=== PATIENT | female | born 1960 | race Caucasian/White ===

== ENCOUNTER 2017-07-09 00:20 | Inpatient (IN) | payer OTHER ==
[2017-07-09] MEDS ORDERED: Lorazepam 2 MG/ML VIAL ONE (00:28)
[2017-07-09] MEDS ORDERED: Haloperidol Lactate 5 MG/ML VIAL ONE (00:37)
[2017-07-09 01:46] LABS: Acetaminophen Less than 6.0 mcg/mL (10.0-30.0); Alcohol Less than 10 mg/dL (Less than 10); Salicylate Less than 8.0 mg/dL (15.0-30.0)
[2017-07-09 01:47] LABS: ALT (SGPT) 87 U/L (8-55); AST (SGOT) 227 U/L (5-34); Albumin 4.3 g/dL (3.5-5.0); Alcohol Less than 10 mg/dL (Less than 10); Alkaline Phosphatase 169 U/L (40-150); Anion Gap 31 mmol/L (10-20); BUN (Urea Nitrogen) 35 mg/dL (9.8-20.1); Bilirubin, Total 1.2 mg/dL (0.2-1.2); Calc. Creatinine Clearance 0 mL/min (70-130); Calcium 9.7 mg/dL (7.8-10.44); Carbon Dioxide 16 mmol/L (22-29); Chloride 99 mmol/L (98-107); Estimated GFR-MDRD 50; Globulin 2.9 g/dL (2.4-3.5); Glucose 86 mg/dL (70-105); Potassium 4.7 mmol/L (3.5-5.1); Protein, Total 7.2 g/dL (6.0-8.3); Sodium 141 mmol/L (136-145)
[2017-07-09 01:49] LABS: Bilirubin Moderate (Negative); Blood, Urine Large (Negative); Clarity CLOUDY (Clear); Glucose, Urine (Dipstick) Negative (Negative); Leukocyte Negative (Negative); Nitrite Negative (Negative); Protein, Urine (Dipstick) 100 mg/dL (Neg-Trace); Specific Gravity, Urine 1.024 (1.002-1.036); pH, Urine 5.5 (5.0-9.0)
[2017-07-09 01:50] LABS: Pregnancy Test - Urine (BHCG) Negative (Negative); Pregu Control Background? CLEAR/WHITE (CLR/WHITE); Pregu Control Bar Appear? YES (CONTROL BAR); Specific Gravity 1.024 (1.002-1.036)
[2017-07-09 01:51] LABS: Bacteria/HPF None Seen HPF (None Seen); Hyaline Casts/LPF 7-10 HYALINE CAST LPF (0-3 Hyaline); RBC/HPF 0-3 HPF (0-3); Squamous Epithelial 0-3 HPF (0-3); WBC/HPF 0-3 HPF (0-3)
[2017-07-09 01:56] LABS: Band 12 % (5-11); Eosinophils 1 % (0-10); Hemoglobin 11.9 g/dL (12.0-16.0); Lymphocytes 8 % (21-51); MDiff Complete? YES; Mean Corpuscular HGB CONC 32.3 g/dL (32.0-36.0); Mean Corpuscular Hemoglobin 28.6 pg (27.0-31.0); Mean Corpuscular Volume 88.3 fl (81.0-99.0); Mean Platelet Volume 5.8 fL (7.4-10.4); Monocytes 10 % (0-10); Neutrophil 69 % (42-75); Nucleated RBC 1 % (0); PLT Morphology Comment Appears Increased; Platelet Count 527 thou/uL (130-400); RBC Distribution Width 13.3 % (11.5-14.5); Red Blood Cell (RBC) Count 4.15 mill/uL (4.20-5.40); White Blood Cell (WBC) Count 23.2 thou/uL (4.8-10.8)
[2017-07-09 03:44] LABS: INR-International Normal Ratio 1.2; PTT 27.4 SEC (22.9-36.1); Prothrombin Time 15.5 SEC (12.0-14.7)
[2017-07-09] MEDS ORDERED: Piperacillin/Tazobactam 3.375 GM in Sodium Chloride 0.9% 100 ML IVPB SCH (05:00)
[2017-07-09 05:16] LABS: Amphetamine Detected (NotDetected); Barbiturates Screen Not Detected (NotDetected); Benzodiazepine Screen Detected (NotDetected); Cocaine Metabolite Screen Detected (NotDetected); Medtox Control Line Valid? VALID (VALID); Medtox Reader # READER 1; Methadone Not Detected (NotDetected); Methamphetamine Detected (NotDetected); Opiate Screen Detected (NotDetected); Oxycodone Screen Not Detected (NotDetected); Phencyclidine (PCP) Not Detected (NotDetected); THC/Cannabinoid Screen Not Detected (NotDetected); Tricyclic Screen Detected (NotDetected)
[2017-07-09] MEDS ORDERED: Ondansetron HCl/PF 4 MG/2 ML Vial IVP PRN (05:17)
[2017-07-09] MEDS ORDERED: Senokot 8.6 MG TAB PO PRN (05:17)
[2017-07-09] MEDS ORDERED: Ondansetron ODT 4 MG TAB PO PRN (05:17)
[2017-07-09] MEDS ORDERED: Calcium Carbonate 500 MG ChewTAB PO PRN (05:17)
[2017-07-09] MEDS ORDERED: Dextrose 50% Abboject 50 ML SYRINGE SLOW IVP PRN (05:21)
[2017-07-09] MEDS ORDERED: Dextrose 5% in Water 1,000 ML IV PRN (05:21)
[2017-07-09] MEDS: Sodium Chloride 0.9% 1,000 ML IV SCH ×3 (05:36→20:12)
--- NOTE | 2017-07-09 05:38 | HP ---
DATE OF ADMISSION: 07/09/2017 PRIMARY CARE PHYSICIAN: Unknown. CHIEF COMPLAINT: Altered mentation and possible drug overdose. HISTORY OF PRESENT ILLNESS: The patient is a 57-year-old female with chronic pain syndrome, was brou ght in by police department for possible overdose. The police department was called to the house by for welfare check because patient was not answering the 's calls. When the police dep artment arrived, the patient was found at home with altered mentation with multiple medication bottle s scattered. The patient was confused and was not following commands. [facility]. She received Ativan by the EMS. She received 5 mg intramuscular Haldol i n the emergency room. At this time, there is no family at the bedside. No information is available from the patient. History obtained from the records from 2015 hospitalization. PAST MEDICAL HISTORY: 1. Bipolar disorder. 2. Chronic pain syndrome. 3. Hypertension. 4. Hyperlipidemia. 5. Hypothyroidism. 6. Chronic hepatitis C. 7. Glaucoma. 8. Chronic obstructive pulmonary disease. PAST SURGICAL HISTORY: . ALLERGIES: No known drug allergies per previous record. HOME MEDICATIONS: Unavailable. SOCIAL HISTORY: Cannot be reliably obtained from the patient due to current cognitive status. FAMILY HISTORY: Cannot be reliably obtained from the patient due to current cognitive status. REVIEW OF SYSTEMS: Cannot be reliably obtained from the patient due to current cognitive status. PHYSICAL EXAMINATION: VITAL SIGNS: In the emergency room showed temperature 99.2, pulse rate of 123, blood pressure of 152 /111 with O2 saturation of 97% on room air. GENERAL: A 57-year-old female with altered mentation. She is agitated and confused. She is not fol lowing commands. She required restraints. HEENT: Head atraumatic, normocephalic. Sclerae are anicteric. Pupils approximately 7-8 mm with goo d response to light. Dry mucous membranes. NECK: Supple, no JVD, no carotid bruit. LUNGS: Showed scattered rales at bases. No wheezing or rhonchi. Lungs were symmetrical. HEART: S1, S2 present, tachycardic, no murmur, rubs or gallops appreciated. ABDOMEN: Soft. Bowel sounds present, no rebound, guarding, no costovertebral angle tenderness. EXTREMITIES: No edema or calf tenderness. There are superficial abrasions noted in the extremities. SKIN: As discussed above. LYMPH NODES: No palpable lymph nodes in the neck. NEUROLOGIC: Could not be reliably done due to current mentation. The patient is spontaneously movin g all four extremities. She is confused and not following commands. PSYCHIATRIC: Could not be reliably done due to current mentation. PERIPHERAL VASCULAR: Radial pulses palpable bilaterally. MUSCULOSKELETAL: No joint swelling or tenderness. LABORATORY FINDINGS: CBC showed WBC of 23.2 with hemoglobin 11.9, platelet 527 with 12% bandemia. I NR 1.2, PT 15.5. Chemistries showed sodium 141, potassium 4.7, chloride 99, bicarbonate of 16, BUN 3 5, creatinine 1.13, AST 227, ALT 87, alkaline phosphatase 169. Urinalysis showed hyaline cast with k etones. Plasma alcohol, salicylate and acetaminophen were negative. Chest x-ray by my review was negative for infiltrate. CT scan of the brain was consistent with small acute left frontotemporal subdural hematoma. Cervical spine CT was negative for any fracture or dis location. EKG by my review showed sinus tachycardia with left axis deviation. IMPRESSION: 1. Toxic metabolic encephalopathy probably secondary to drug overdose. Urine drug screen from 2 mon ths ago was positive for amphetamines, benzodiazepines, cocaine, and opioids. Drug screen is pending at this time. 2. Sepsis with acute organ dysfunction of unclear etiology. The patient has WBC of 23.2 with tachyc ardia and metabolic acidosis. Lactic acidosis will be obtained. 3. Acute kidney injury on chronic kidney disease stage 2. 4. Abnormal liver function tests of unclear etiology. 5. Dehydration. 6. Metabolic acidosis, rule out lactic acidosis. 7. Bipolar disorder. 8. Chronic pain syndrome. 9. Hypertension. 10. Hyperlipidemia. 11. Hypothyroidism. 12. Chronic hepatitis C. 13. Glaucoma. 14. Chronic obstructive pulmonary disease. 15. Small acute left frontotemporal subdural hematoma measuring 5 mm in maximum thickness. PLAN: The patient will be monitored in the Intensive Care Unit. Critical Care will be consulted. W e will continue empiric antibiotics. We will obtain blood cultures. Urine cultures have been sent. We will consult Neurosurgery. Close monitoring. We will obtain neuro checks. We will try to conta ct the family. We will discuss the plan of care with the family when they arrive.
[2017-07-09 06:11] LABS: Lactic Acid 1.4 mmol/L (0.5-2.2)
[2017-07-09 06:13] LABS: Lipase Less than 4 U/L (8-78); Magnesium 2.1 mg/dL (1.6-2.6)
[2017-07-09] MEDS ORDERED: Diazepam 10 MG/2 ML SYRINGE IVP PRN (07:52)
--- NOTE | 2017-07-09 07:52 | ULT ---
RIGHT UPPER QUADRANT ULTRASOUND: Date: 07/09/17 PROVIDED CLINICAL HISTORY: Elevated LFTs. FINDINGS: The pancreas appears normal as visualized, as does the IVC. The liver appears echogenic without evide nce for mass or intrahepatic biliary ductal dilatation. The common duct is not dilated. Gallbladder d emonstrates no stones, wall thickening, or pericholecystic fluid. Right kidney demonstrates no hydron ephrosis or mass. IMPRESSION: Fatty infiltration of the liver. POS: [facility]
[2017-07-09] MEDS: Famotidine/PF 20 mg/2ml Vial SLOW IVP SCH (08:17)
[2017-07-09] MEDS: Lorazepam 2 MG/ML VIAL SLOW IVP SCH ×2 (08:17→09:38)
--- NOTE | 2017-07-09 08:56 | RAD ---
PORTABLE CHEST: Date: 07/09/17 PROVIDED CLINICAL HISTORY: Overdose. FINDINGS: Comparison made with study dated 10/20/11. Cardiac and mediastinal silhouette is within normal limits for portable technique. No focal consolida tion evident. The supine nature of the examination limits sensitivity for detection of pleural fluid and pneumothorax. IMPRESSION: As above. POS: [facility]
--- NOTE | 2017-07-09 09:51 | PRG ---
DATE OF SERVICE: 07/09/2017 I personally interviewed and examined the patient and agree with documentation of marie Morris PA-C 07/09/2017. Briefly, Majo Dang is a 57-year-old woman with bipolar disorder and chronic pain, who was found do wn by her family with some pill bottles near her. She was confused and brought to the emergency depa rtment, where CT examination of the brain showed a very small left-sided subdural hematoma, measuring 2 mm in thickness at most, not causing any mass effect. The rest of the brain scan was normal. CT examination of the cervical spine showed a chronic spondylolisthesis at C4-5 from facet disease. Neurosurgery was consulted yesterday. Ms. Dang is in the ICU room this morning as I see her. Her T-max is 99.4 degrees. As I entered e room, she is speaking loudly. She is not making sense. When I say her first name, Majo, she answ ers yes. Occasionally, I can convince her to follow commands, but the majority of the time she is sp eaking incoherently. She is moving all 4 extremities. There is no cranial neuropathy that I can aparna reciate. I cannot get a full sensory examination, but she does react to tactile stimuli. I reviewed the CT scan from yesterday and I am awaiting 1 today. This tiny subdural hematoma is nons urgical. I doubt she will require any neurosurgical intervention. However, Ms. Dang has a psychiatric disturbance. A new delirium has been added to her underlying p sychiatric diagnoses and her management will be complicated. Inpatient treatment for this would be i deal if we have the appropriate psychiatric hospital bed for her. I would like to get a followup sca n of her brain in about a month to ensure the blood products have resolved, and hopefully speak to he r coherently about her cervical spine disease. Our office will make attempts to have that appointmen t set up. Our team will be available during hospitalization should neurosurgical opinion be valuable on upcoming issues. I would not give her anticoagulation given the subdural hematoma, but the amoun t she is moving puts her at very low risk for DVT.
--- NOTE | 2017-07-09 09:53 | CT ---
PRELIMINARY REPORT/[facility]/EMERGENCY AFTER HOURS PROCEDURE: Addendum created by Oral Goldberg MD on 07/09/2017 1:32 AM Central Time ([place] & [place]) Findings discussed with EM BENITEZ MD at time of interpretation. Initial Report created on 07/09/2017 1:27 AM Central Time ([place] & [place]) EXAM: CT Head Without Intravenous Contrast EXAM DATE/TIME: Exam ordered 07/09/2017 1:18 AM CLINICAL HISTORY: 57 years old, female; Signs and symptoms; Altered mental status/memory loss; Patient HX: Er 5; F57 with presentation of od. Pd was called to the house by for welfare check because pt was not answering the 's calls. Pd arrive to pt's house with multiple pill bottles scattered a nd pt was confused, resistant and altered and was given 6 of ativan. ; Additional info: *-pt combative f or exam TECHNIQUE: Axial computed tomography images of the head/brain without intravenous contrast. COMPARISON: No relevant prior studies available. FINDINGS: Brain: There is an acute left frontotemporal subdural hematoma measuring 5 mm in maximum thickness and spanning 6 cm in long axis. Volume loss and chronic small vessel ischemic change. No evidence of cerebral edema. Midline shift: No midline shift. Ventricles: Unremarkable. No ventriculomegaly. Bones/joints: Unremarkable. No acute fracture. Soft tissues: Unremarkable. Sinuses: Unremarkable as visualized. No acute sinusitis. Mastoid air cells: Unremarkable as visualized. No mastoid effusion. IMPRESSION: Small acute left frontotemporal subdural hematoma. Thank you for allowing us to participate in the care of your patient. Dictated and Authenticated by: Oral Goldberg MD 07/09/2017 1:27 AM Central Time ([place] & [place]) FINAL REPORT EMERGENCY AFTER HOURS CT BRAIN: Date: 07/09/17 IMPRESSION: I agree with the preliminary interpretation given by Florinda. POS: [facility]
--- NOTE | 2017-07-09 09:58 | CT ---
PRELIMINARY REPORT/[facility]/EMERGENCY AFTER HOURS PROCEDURE: EXAM: CT Cervical Spine Without Intravenous Contrast EXAM DATE/TIME: Exam ordered 07/09/2017 1:53 AM CLINICAL HISTORY: 57 years old, female; Injury or trauma; Fall; Initial encounter; Abrasion; Patient HX: Possible fall; Er 5; F57 with presentation of od. Pd was called to the house by for welfare check because p t was not answering the 's calls. Pd arrive to pt's house with multiple pill bottles scattered and pt was confused, resistant and altered and was given 6 of ativan. ; Additional info: *-pt combat zeyad for exam TECHNIQUE: Axial computed tomography images of the cervical spine without intravenous contrast. Coronal and sagi ttal reformatted images were created and reviewed. COMPARISON: No relevant prior studies available. FINDINGS: Vertebrae: No fracture. Degenerative changes. Mild anterolisthesis of C4 on C5. Discs/spinal canal/neural foramina: No acute findings. No spinal canal stenosis. Soft tissues: Unremarkable. Lung apices: Unremarkable as visualized. IMPRESSION: No fracture. Thank you for allowing us to participate in the care of your patient. Dictated and Authenticated by: Oral Goldberg MD 07/09/2017 3:17 AM Central Time ([place] & [place]) FINAL REPORT EMERGENCY AFTER HOURS CT CERVICAL SPINE: Date: 07/09/17 IMPRESSION: I agree with the preliminary interpretation given by Florinda. No evidence for fracture. Approximately 4. 0 mm of anterolisthesis of C4 on C5, which is presumably degenerative in nature given the advanced fa cet arthritis present at this level. Correlation with flexion and extension radiographs may be useful as clinically indicated. POS: [facility]
[2017-07-09] MEDS ORDERED: Ziprasidone 20 MG VIAL IM SCH (10:45)
[2017-07-09] MEDS ORDERED: Sterile Water 10 ML VIAL FS SCH (11:00)
--- NOTE | 2017-07-09 12:51 | CON ---
DATE OF CONSULTATION: 07/09/2017 HISTORY OF PRESENT ILLNESS: Ms. Dang is a 57-year-old female who I saw in her room this morning. She presented to [facility] this morning after being brought in by police for po ssible overdose. The police department was called by her for a welfare check and the patient was found at home with altered mental status, multiple medication bottles scattered around her. The patient was not following commands, but she was moving all extremities. [facility] and received 6 mg of Ativan by EMS en route. When she got to [facility], she is still combative and I gave Haldol in the ER, 5 mg intramuscular. There is no fa mariya at bedside. There is no information available from the patient this morning on exam. Ms. Cr jean-baptiste still does not follow commands; however, she is able to move all extremities. On CT scan, she has a small layering left frontal temporoparietal subdural hematoma that is acute. It is not causing any midline shift or neurologic deficit at this time. Neurosurgery was called because of these findings . PAST MEDICAL HISTORY: Includes, 1. Bipolar disorder. 2. Chronic pain syndrome. 3. Hypertension. 4. Hyperlipidemia. 5. Hypothyroidism. 6. Chronic hepatitis C. 7. Glaucoma. 8. Chronic obstructive pulmonary disease. PAST SURGICAL HISTORY: . ALLERGIES: No known drug allergies. HOME MEDICATIONS: Not available at this time. SOCIAL HISTORY: The patient is unable to give social history at this time; however, because of her m entation. FAMILY HISTORY: Cannot be reliably obtained at this time due to patient's cognitive status. LABORATORY DATA: Toxicity screen shows urine opiate screen is positive. Acetaminophen is positive. Tricycles are positive, amphetamines are positive, methamphetamines are positive, benzodiazepines ar e positive and cocaine is positive as well as beta hydroxybutyrate. On her urine screen, she has 100 high urine protein, urine ketones are high and she has a large amoun t of blood in the urine. On chemistry exam, her sodium is 141, creatinine is 1.13. AST is 227 and ALT is 87. Coagulation exa m; PT is 15.5, INR and APTT are normal. On hematology exam, white blood cell count is 23.2, red blood cell count is 1.15 and hemoglobin is 11 .9. PHYSICAL EXAMINATION: CURRENT VITAL SIGNS: Include temperature is 98.5, pulse is 114, respirations 22, O2 sat is 97% on ro om air. GENERAL: A 57-year-old female with altered mentation, agitated and confused and not following comman ds. She required restraints in the ICU. HEENT: Normocephalic, atraumatic. Hearing intact. Moist mucous membranes. NECK: Trachea is midline. EYES: Pupils are equal and reactive to light. Extraocular muscles are intact. Sclerae is white, no nicteric. CARDIOVASCULAR: The patient has regular rate and rhythm, normal S1, S2 heart sounds. Distal cyanosi s or clubbing is not noted. NEUROLOGIC: Patient is moving upper and lower extremities. Does not appeared to be any focal motor deficits or focal sensory deficits. She is confused and not following commands at this time. MUSCULOSKELETAL: There is no joint tenderness or swelling. She has good strength in her upper and l ower extremities bilaterally. IMPRESSION: 1. Ms. Dang is a 57-year-old female who presents with a drug overdose with multiple positive drug screen showing positive for amphetamines, benzodiazepines, cocaine, opiates. 2. Sepsis with acute organ dysfunction . 3. Small acute left frontotemporal subdural hematoma measuring 5 mm in maximum thickness causing a m idline shift. PLAN: From a neurosurgical standpoint, we will get a repeat CT this morning to see if there is any b lossoming in the left frontotemporal hemorrhage. We will do neuro checks and have her stay in the IC U overnight. She will likely need monitored closely because of the metabolic encephalopathy and drug overdose. Medicine has admitted to ICU, and Neurosurgery will continue to follow. If there are any further questions, please feel free to contact Neurosurgery.
--- NOTE | 2017-07-09 13:36 | PDOC.PN ---
- Subjective Encounter Start Date: 07/09/17 Encounter Start Time: 09:10 Subjective: not oriented, is thrashing around on bed -: responds to her name but is not oriented -: is seen moving all extremities - Objective Resuscitation Status: Resuscitation Status FULL:Full Resuscitation MAR Reviewed: Yes Vital Signs & Weight: Vital Signs (12 hours) Temp Pulse Resp Pulse Ox 07/09/17 12:00 97.9 F 07/09/17 10:45 99 07/09/17 10:42 102 H 18 99 07/09/17 08:00 99.4 F 07/09/17 07:27 99.4 F 133 H 22 H 97 07/09/17 06:00 98.5 F 07/09/17 05:56 98.5 F 114 H 22 H 96 Weight Weight 151 lb 3.794 oz Most Recent Monitor Data Heart Rate from ECG 103 NIBP 119/67 NIBP BP-Mean 83 Respiration from ECG 26 SpO2 99 I&O: 07/08/17 07/09/17 07/10/17 05:59 06:59 06:59 Intake Total Balance Result Diagrams: 07/09/17 00:15 07/09/17 00:15 Additional Labs: Accuchecks 07/09/17 05:29 POC Glucose 141 H Phys Exam - Physical Examination HEENT: PERRLA, sclera anicteric Neck: no JVD, supple Respiratory: no wheezing, no rales Cardiovascular: RRR, no significant murmur Gastrointestinal: soft, non-tender, positive bowel sounds Musculoskeletal: no edema, pulses present Neurological: non-focal, moves all 4 limbs Dx/Plan (1) Acute encephalopathy Code(s): G93.40 - ENCEPHALOPATHY, UNSPECIFIED Status: Acute (2) Polysubstance abuse Code(s): F19.10 - OTHER PSYCHOACTIVE SUBSTANCE ABUSE, UNCOMPLICATED Status: Acute (3) Drug overdose Code(s): T50.901A - POISONING BY UNSP DRUG/MEDS/BIOL SUBST, ACCIDENTAL, INIT Status: Acute Qualifiers: Encounter type: subsequent encounter (4) TREV (acute kidney injury) Code(s): N17.9 - ACUTE KIDNEY FAILURE, UNSPECIFIED Status: Acute (5) SDH (subdural hematoma) Code(s): I62.00 - NONTRAUMATIC SUBDURAL HEMORRHAGE, UNSPECIFIED Status: Acute Comment: on left side (6) Metabolic acidosis Code(s): E87.2 - ACIDOSIS Status: Acute (7) Mood disorder Code(s): F39 - UNSPECIFIED MOOD [AFFECTIVE] DISORDER Status: Chronic (8) COPD (chronic obstructive pulmonary disease) Status: Chronic Qualifiers: COPD type: chronic bronchitis Chronic bronchitis type: unspecified Qualified Code(s): J42 - Unspecified chronic bronchitis (9) Hypothyroidism Code(s): E03.9 - HYPOTHYROIDISM, UNSPECIFIED Status: Chronic Qualifiers: Hypothyroidism type: unspecified Qualified Code(s): E03.9 - Hypothyroidism , unspecified (10) Chronic pain syndrome Code(s): G89.4 - CHRONIC PAIN SYNDROME Status: Chronic - Plan aggressive iv hydration -: is empirically place on vanc and meropenem -: will need in psych facility upon discharge -: multiple substance abuse/overdose -: will f/u * . Review of Systems - Medications/Allergies Allergies/Adverse Reactions: Allergies Allergy/AdvReac Type Severity Reaction Status Date / Time No Known Allergies Allergy Verified 11/23/15 23:31 Medications: Current Medications Acetaminophen (Tylenol) 650 mg PO Q4H PRN PRN Reason: Headache/Fever or Pain Albuterol/Ipratropium (Duoneb) 3 ml NEB [id number] [facility] Last Admin: 07/09/17 10:42 Dose: 3 ml Albuterol/Ipratropium (Duoneb) 3 ml NEB Q4H PRN PRN Reason: SOB &/or Wheezing Calcium Carbonate (Tums) 1,000 mg PO Q4H PRN PRN Reason: Heartburn or Indigestion Dextrose/Water (Dextrose 50%) 25 gm SLOW IVP PRN PRN PRN Reason: Hypoglycemia Famotidine (Pepcid) 20 mg SLOW IVP Q12HR [facility] Last Admin: 07/09/17 08:17 Dose: 20 mg Glucagon (Glucagon) 1 mg IM PRN PRN PRN Reason: Hypoglycemia Meropenem 1 gm/ Syringe 20 mls @ 240 mls/hr SLOW IVP Q8HR [facility] Sodium Chloride (Normal Saline 0.9%) 1,000 mls @ 150 mls/hr IV .Q6H40M [facility] Last Admin: 07/09/17 12:30 Dose: 1,000 mls Dextrose/Water (D5w) 1,000 mls @ 0 mls/hr IV .Q0M PRN; As Directed PRN Reason: Hypoglycemia Vancomycin HCl 750 mg/ Sodium (Chloride) 250 mls @ 250 mls/hr IVPB 0400,1600 [facility] Lorazepam (Ativan) 2 mg SLOW IVP [facility] Last Admin: 07/09/17 09:38 Dose: 2 mg Miscellaneous Medication (Pharmacy To Dose) 0 each IVPB PRN PRN PRN Reason: VANC/RENAL Pharmacy to Dose Ondansetron HCl (Zofran Odt) 4 mg PO Q6H PRN PRN Reason: Nausea/Vomiting Ondansetron HCl (Zofran) 4 mg IVP Q6H PRN PRN Reason: Nausea/Vomiting Senna (Senokot) 2 tab PO HSPRN PRN PRN Reason: Constipation Sodium Chloride (Flush - Normal Saline) 10 ml IVF PRN PRN PRN Reason: Saline Flush Last Admin: 07/09/17 08:17 Dose: 10 ml Sterile Water (Water For Injection) 2 ml FS NOW [facility] Stop: 07/09/17 14:00 Last Admin: 07/09/17 11:07 Dose: 2 ml
[2017-07-09] MEDS: Meropenem 1 GM in Syringe 20 ML SLOW IVP SCH ×2 (14:30→21:19)
[2017-07-09] MEDS ORDERED: Vancomycin HCl 1 GM in Premix Bag 1 BAG IVPB SCH (16:00)
[2017-07-09] MEDS: Vancomycin HCl 750 MG in Sodium Chloride 0.9% 250 ML 250 ML IVPB SCH (16:20)
--- NOTE | 2017-07-09 17:20 | CON ---
DATE OF CONSULTATION: 07/09/2017 HISTORY OF PRESENT ILLNESS: Ms. Dang is a 57-year-old female. Apparently, she was brought in by the police for possible overdose. Apparently, her ex-? coul d not get a hold of her. The police were called and she was found with an altered mental status in t he home and brought to the Emergency Department. She received apparently a large dose of Ativan by [facility] according to the neurologist's note. She has also been seen by Neurosurgery for a very small left subdural hematoma. She had no spinal cord injury. She is still fairly incoherent. She is talking with her eyes closed. PAST MEDICAL HISTORY: Remarkable for bipolar disorder, chronic pain, hypertension, lipid disorder, h ypothyroidism, chronic hepatitis C, glaucoma and COPD. She has been hospitalized in [place], but has not been hospitalized here recently. She did have an operative procedure by Dr. Ward in 10/2015 when he took out her appendix via lapar oscope. She had several ER visits along the way. Old records have been reviewed. It is noted in an old records that she has been followed at / by Dr. Cook and then was followed by Dr. Ness and apparently her pain was managed with morphine. PAST SURGICAL HISTORY: Besides her appendectomy, it is remarkable for . SOCIAL HISTORY: She is a nonsmoker, nondrug user. In 2014, when Dr. Daly saw her, she was . FAMILY HISTORY: Positive for congestive heart failure, renal failure as well as mental illness. No history of lung disease reported in the old records. ALLERGIES: There are no reported drug allergies. REVIEW OF SYSTEMS: Not obtainable. PHYSICAL EXAMINATION: VITAL SIGNS: Heart rate is 105, respiratory rate is 19, oximetry is 99% on room air and blood pressu re 128/68. HEENT: Pupils reactive. Sclerae is anicteric. NECK: Supple. NEUROLOGIC: She moves all of her extremities. She mumbles with her eyes closed. She does not answe r correct questions. She is in no distress. LUNGS: Clear. HEART: Regular rhythm. No S3. ABDOMEN: Soft and nontender. EXTREMITIES: Without asymmetry or edema. LABORATORY AND X-RAY FINDINGS: White count 23.2, hemoglobin 11.9 and platelets 527,000. Sodium 141, potassium 4.7, chloride 99, bicarbonate 16, BUN 35 and creatinine 1.13. Her anion gap is 26, AST is 227, ALT is 87 and alkaline phosphatase is 169. IMPRESSION AND PLAN: 1. Encephalopathy. 2. Anion gap acidosis of unclear etiology. I do not find any blood cultures that have been drawn, o r at least reported. Would recommend she stay in the critical care unit for now. She needs hydratio n, serial exams. She has been already covered with antibiotics, so blood cultures and urine cultures will not be helpful at this point. She is in no respiratory distress. A blood gas is indicated at this point in time, but should she clinically deteriorate, that would be the next test to be ordered. She has been seen by multiple physicians. At this time, I will be happy to follow along with them. CRITICAL CARE TIME: 30 minutes.
--- NOTE | 2017-07-09 17:25 | HP ---
DATE OF ADMISSION: 07/09/2017 ADMITTING PHYSICIAN: [facility]/Dr. Mcdonough, Trauma Services. CONSULTING PHYSICIAN: Dr. Stern, Neurosurgery. CHIEF COMPLAINT: Altered mentation, questionable drug overdose. HISTORY OF PRESENT ILLNESS: Ms. Dang is a 57-year-old female who the police were called to her ayad e for a welfare check. She was found with altered mentation and multiple medication bottles scattere d around her. She was transported to [facility] where workup identified a small subdural hematoma. She apparently was confused and combative and received Ativan and Haldol. She w as admitted by the [facility] to the hospital. Dr. Stern, Neurosurgery was consulte d. Pulmonary Medicine was also consulted. PAST MEDICAL HISTORY: 1. Bipolar disorder. 2. Chronic pain syndrome. 3. Hypertension. 4. Hyperlipidemia. 5. Hypothyroidism. 6. Chronic hepatitis C. 7. Glaucoma. 8. Chronic obstructive pulmonary disease. PAST SURGICAL HISTORY: . ALLERGIES: No known drug allergies. MEDICATIONS: Unknown. SOCIAL HISTORY: The patient is not able to give social history; however. Toxicology is positive for opiates, phencyclidine, amphetamine, methamphetamine, benzodiazepine and cocaine. FAMILY HISTORY: Unknown. REVIEW OF SYSTEMS: The patient with altered mental status and cannot participate in review of system s. PHYSICAL EXAMINATION: VITAL SIGNS: Temperature 99.4, heart rate 108, blood pressure 106/64, O2 sat 99%. HEENT: Atraumatic, normocephalic. NECK: Trachea midline. No JVD. PULMONARY: No respiratory distress. LUNGS: Clear. Chest rise and fall symmetrical. CARDIOVASCULAR: Regular rate and rhythm. Heart sounds normal. ABDOMEN: Soft, nontender, nondistended. EXTREMITIES: Moves all extremities well. Cap refill brisk. SKIN: Multiple scattered abrasions and contusions. NEUROLOGIC: [id number]. The patient is confused and mumbling incoherent words constantly. LABORATORY DATA: CBC: WBC 23.2, RBC 4.15, hemoglobin 11.9, hematocrit 36.7, platelets 527, 12% band emia. Coags: PT 15.5, INR 1.2. Chemistry: Sodium 141, potassium 4.7, chloride 99, carbon dioxide 16, BUN 35, creatinine 1.13. DIAGNOSTIC IMAGING: Brain CT, small acute left frontotemporal subdural hematoma. Cervical spine CT, no acute fracture. ASSESSMENT: 1. History of polysubstance abuse with toxicology on this admission. Positive for multiple substanc es as well. 2. Sepsis. WBC 23.2, 12% bandemia. 3. Small acute left frontotemporal subdural hematoma. Neurosurgery consulted. 4. History of bipolar disorder. PLAN: 1. The patient has been admitted to the intensive care unit by [facility]. Pulmonary C ritical Care Medicine has been consulted. They have initiated antibiotic treatment for sepsis. Work up is in progress. 2. Dr. Stern, Neurosurgery has been consulted. No neurosurgical intervention has been recommend ed. 3. Mechanism of injury is unclear for this patient. She is encephalopathic and is not able to provi de any information. At this time, she will be treated for her sepsis and psychiatric disorders. At this point, Trauma Services will follow along, but there are no other non-neurosurgical traumatic iss ues at hand. 4. Appreciate all services. The patient was reviewed with Dr. Mcdonough, attending surgeon, who agrees with plan.
--- NOTE | 2017-07-09 17:44 | CT ---
CT BRAIN WITHOUT CONTRAST: History: Left subdural hematoma. Follow up. Altered mental status. FINDINGS/IMPRESSION: No significant interval change is seen since earlier exam of 1:20 a.m., performed on same date. POS: [facility]
[2017-07-09] MEDS: Famotidine 40 MG/4 ML VIAL SLOW IVP SCH (21:53)
[2017-07-10] MEDS: Vancomycin HCl 750 MG in Sodium Chloride 0.9% 250 ML 250 ML IVPB SCH (03:26)
[2017-07-10] MEDS: Sodium Chloride 0.9% 1,000 ML IV SCH ×2 (03:26→10:14)
[2017-07-10 04:56] LABS: #Eosinphils 0.1 thou/uL (0.0-0.7); #Lymphocytes 2.2 thou/uL (1.20-3.40); #Monocytes 1.3 thou/uL (0.11-0.59); #Neutrophils 7.7 thou/uL (1.40-6.50); %Basophils 0.3 % (0.0-1.0); %Eosinophils 0.6 % (0.0-10.0); %Lymphocytes 19.4 % (21.0-51.0); %Monocytes 11.7 % (0.0-10.0); %Neutrophils 67.9 % (42.0-75.0); Hemoglobin 10.6 g/dL (12.0-16.0); Mean Corpuscular HGB CONC 32.5 g/dL (32.0-36.0); Mean Corpuscular Hemoglobin 28.9 pg (27.0-31.0); Mean Corpuscular Volume 88.9 fl (81.0-99.0); Mean Platelet Volume 5.7 fL (7.4-10.4); Platelet Count 273 thou/uL (130-400); RBC Distribution Width 13.4 % (11.5-14.5); Red Blood Cell (RBC) Count 3.68 mill/uL (4.20-5.40); White Blood Cell (WBC) Count 11.3 thou/uL (4.8-10.8)
[2017-07-10] MEDS: Meropenem 1 GM in Syringe 20 ML SLOW IVP SCH (05:03)
[2017-07-10 05:16] LABS: ALT (SGPT) 97 U/L (8-55); AST (SGOT) 190 U/L (5-34); Albumin 3.4 g/dL (3.5-5.0); Alkaline Phosphatase 108 U/L (40-150); Anion Gap 16 mmol/L (10-20); BUN (Urea Nitrogen) 20 mg/dL (9.8-20.1); Bilirubin, Total 0.7 mg/dL (0.2-1.2); Calc. Creatinine Clearance 99 mL/min (70-130); Calcium 8.2 mg/dL (7.8-10.44); Carbon Dioxide 18 mmol/L (22-29); Chloride 111 mmol/L (98-107); Estimated GFR-MDRD 89; Globulin 2.4 g/dL (2.4-3.5); Glucose 60 mg/dL (70-105); Magnesium 1.9 mg/dL (1.6-2.6); Potassium 3.3 mmol/L (3.5-5.1); Protein, Total 5.8 g/dL (6.0-8.3); Sodium 142 mmol/L (136-145)
--- NOTE | 2017-07-10 07:19 | PRG ---
DATE OF SERVICE: 07/10/2017 I followed up with Ms. Dang in her ICU room this morning. A repeat CT scan was done around 5:00 p. m. yesterday and compared to the first one. There was very little change. Overnight, her vitals hav e been stable. Ms. Dang is making more sense with her conversation, although at times she is tange ntial and impulsive. Her vitals have been stable. Her cranial nerves are working well. There is no lateralizing motor or sensory deficits that I can appreciate. Her white blood cell count is down to 11.3, her sodium is 142. Ms. Dang's CT scan does not show any increase in the subdural hematoma. This is a tiny amount of e xtraaxial hemorrhage, not causing mass effect and asymptomatic. She does not require neurosurgical i ntervention. We can follow her up in 3-4 weeks in the office with a CT scan. I ordered an outpatien t CT and call her with the results. Her more pressing issues, the delirium and psychiatric diagnoses have led her to be found down at home with open pill bottles and explaining her recent behavior. Th robina are issues for her safety going forward. Our Neurosurgery team will be available while she is in the hospital for reconsultation should any questions arise. I would avoid blood thinners during her stay here. She is at low risk for DVT given how much she moves in bed.
[2017-07-10] MEDS ORDERED: Potassium Phosphate 30 MMOL in Sodium Chloride 0.9% 500 ML IVPB SCH (07:30)
[2017-07-10] MEDS ORDERED: Potassium Phosphate 30 MMOL in Sodium Chloride 0.9% 250 ML 250 ML IVPB SCH (07:45)
--- NOTE | 2017-07-10 09:01 | RAD ---
CHEST 1 VIEW: HISTORY: Sepsis. Followup. COMPARISON: 07/09/17. FINDINGS: Cardiac silhouette is magnified and upper limits of normal in size. Pulmonary vasculature is more en gorged than on the prior exam. Mediastinum is midline. Subtle increase in density over the left kim st compared to the right is favored to be artifactual, as no focal airspace opacity or loss of margin s are apparent. product manufacturing professional leads overlie the chest. IMPRESSION: Slight interval increase in pulmonary vascular congestion. POS: [facility]
[2017-07-10] MEDS ORDERED: Furosemide 20 MG/2 ML VIAL SLOW IVP SCH (10:00)
--- NOTE | 2017-07-10 10:45 | PRG ---
DATE OF SERVICE: 07/10/2017 HISTORY OF PRESENT ILLNESS: Ms. Dang is a 57-year-old woman with history of bipolar disorder, esse ntial hypertension, chronic hepatitis C, and COPD. The patient was found stuporous and confused yest erday following an apparent polysubstance overdose with prescription medications. Subsequent workup included CT scan of the brain which also reveals a small subdural hematoma. The patient was admitted with a presumptive diagnosis of sepsis. A broad spectrum antibiotic therapy was initiated. Follow up CT scan of the brain reveals stable small left convexity subdural hematoma. Blood culture so far has been negative. I reviewed urinalysis which was essentially unremarkable for urinary tract infect ion. Overnight, the patient's encephalopathy is resolving. This morning, she is awake and alert, al beit, slightly confused with a Garber coma scale of E4 V4 M6. She moves all extremities and answers questions appropriately. She is oriented to person and place but disoriented to time, although she is easily reoriented. She is having normal urinary function. I's and O's overnight has been 3896 an d 3894. OBJECTIVE: VITAL SIGNS: This morning includes blood pressure 146/57, pulse 94, respiratory rate is 28, maximum temperature in the last 24 hours is 98.9 degrees Fahrenheit, and oxygen saturation currently is 100% on room air. HEENT: Examination reveals normocephalic. Pupils are equally round and reactive to light and accomm odation. She has bilateral scleral edema present. HEART: Reveals regular rate and rhythm. No murmurs or gallops auscultated. CHEST: Clear to auscultation bilaterally. Breathing is regular and unlabored. ABDOMEN: Soft, nontender, and nondistended. EXTREMITIES: Reveals 2+ radial and pedal pulses bilaterally. No ankle edema is present. NEUROLOGIC: Examination reveals no focal deficits at this time. LABORATORY DATA AND IMAGING DATA: Laboratory findings today includes CBC with 11,300 white blood shona ls, hemoglobin and hematocrit are 10.6 and 32.7 respectively. Platelet count is 273,000. Metabolic profile: Sodium 142, potassium is 3.3, chloride is 111, bicarbonate is 18, BUN and creatinine 20 and 0.68 respectively. Glucose is 109. Phosphorus is 2.0, magnesium is 1.9. I have also reviewed ches t x-ray this morning which reveals increasing pulmonary vascular congestion with cardiomegaly and lef t-sided pulmonary interstitial infiltrates. IMPRESSION: 1. Post-admission day #1 status post apparent polysubstance overdose. Patient is neurologically imp roved. 2. Acute traumatic brain injury with small subdural hematoma, neurologically improving. 3. Acute hypovolemia with evolving acute congestive heart failure. 4. Acute hypomagnesemia. 5. Acute hypokalemia. 6. Acute hypophosphatemia. PLAN: 1. Correct abnormal electrolytes. 2. Patient will be started on gentle diuresis. 3. Initiate physical and occupational therapy. The patient is hemodynamically and neurologically st able and we would therefore be transfer to the general surgical floor where her care continues. We w ill continue with nonpharmacological VTE prophylaxis. 4. We will ask PM&R to evaluate the patient for possible inpatient rehabilitation.
[2017-07-10] MEDS: Furosemide 40 MG/4 ML VIAL SLOW IVP SCH ×2 (11:50→21:12)
--- NOTE | 2017-07-10 12:29 | PRG ---
DATE OF SERVICE: 07/10/2017 Ms. Dang is more alert today. She is quick to respond to questions. Yesterday she was mumbling in her sleep and would not consistently awaken, but today she awakened quickly. She did not know she w as in the hospital. PHYSICAL EXAMINATION: VITAL SIGNS: Heart rate is in the 90s, blood pressure 146/57, respiratory rates in the 20s. LUNGS: Clear. HEART: Regular rhythm. ABDOMEN: Abdomen is soft. Oximetry is 100%. White count 11.3, hemoglobin 10.6, platelets 273. Sodium 142, potassium 3.3, chloride 111, bicarbonate 18, BUN 20, creatinine 0.68. IMPRESSION: 1. Subdural hematoma likely subacute. No operative intervention is planned. 2. Elevated liver enzymes suggestive of alcohol with an AST greater than ALT. 3. Drug screen positive for opiates, tricyclic, amphetamines, methamphetamines, benzodiazepines, and cocaine. 4. Multiple contusions, most likely secondary to falls. 5. Mild increase in interstitial markings, probably associated with her volume resuscitation. PLAN: She is stable to transfer out of the Critical Care Unit in my opinion. We will sign off.
--- NOTE | 2017-07-10 12:34 | PDOC.PN ---
- Subjective Encounter Start Date: 07/10/17 Encounter Start Time: 08:45 Subjective: is awake, not fully oriented -: has mild sob, is moving all extremities -: follows verbal stimuli - Objective Resuscitation Status: Resuscitation Status FULL:Full Resuscitation MAR Reviewed: Yes Vital Signs & Weight: Vital Signs (12 hours) Temp Pulse Resp Pulse Ox 07/10/17 08:00 98.4 F 84 21 H 100 07/10/17 06:27 100 07/10/17 06:25 84 20 100 07/10/17 04:00 98.3 F Weight Weight 150 lb 12.739 oz Most Recent Monitor Data Heart Rate from ECG 95 NIBP 146/57 NIBP BP-Mean 101 Respiration from ECG 22 SpO2 100 I&O: 07/09/17 07/10/17 07/11/17 06:59 06:59 06:59 Intake Total 3896 200 Output Total 2 200 Balance 3894 0 Result Diagrams: 07/10/17 04:27 07/10/17 04:27 Additional Labs: Accuchecks 07/10/17 07/10/17 07/09/17 10:21 07:31 20:24 POC Glucose 161 H 109 92 07/09/17 07/09/17 18:32 14:00 POC Glucose 97 118 H Phys Exam - Physical Examination HEENT: PERRLA, moist MMs Neck: no JVD, supple Respiratory: no wheezing, no rales Cardiovascular: RRR, no significant murmur Gastrointestinal: soft, non-tender, no distention, positive bowel sounds Musculoskeletal: no edema, pulses present Neurological: non-focal, moves all 4 limbs Dx/Plan (1) Acute encephalopathy Code(s): G93.40 - ENCEPHALOPATHY, UNSPECIFIED Status: Acute Comment: sec to polysubstance abuse and drug overdose (2) Polysubstance abuse Code(s): F19.10 - OTHER PSYCHOACTIVE SUBSTANCE ABUSE, UNCOMPLICATED Status: Acute (3) Drug overdose Code(s): T50.901A - POISONING BY UNSP DRUG/MEDS/BIOL SUBST, ACCIDENTAL, INIT Status: Acute Qualifiers: Encounter type: subsequent encounter (4) TREV (acute kidney injury) Code(s): N17.9 - ACUTE KIDNEY FAILURE, UNSPECIFIED Status: Resolved (5) SDH (subdural hematoma) Code(s): I62.00 - NONTRAUMATIC SUBDURAL HEMORRHAGE, UNSPECIFIED Status: Acute Comment: on left side (6) Metabolic acidosis Code(s): E87.2 - ACIDOSIS Status: Resolved (7) Mood disorder Code(s): F39 - UNSPECIFIED MOOD [AFFECTIVE] DISORDER Status: Chronic (8) COPD (chronic obstructive pulmonary disease) Status: Chronic Qualifiers: COPD type: chronic bronchitis Chronic bronchitis type: unspecified Qualified Code(s): J42 - Unspecified chronic bronchitis (9) Hypothyroidism Code(s): E03.9 - HYPOTHYROIDISM, UNSPECIFIED Status: Chronic Qualifiers: Hypothyroidism type: unspecified Qualified Code(s): E03.9 - Hypothyroidism , unspecified (10) Chronic pain syndrome Code(s): G89.4 - CHRONIC PAIN SYNDROME Status: Chronic - Plan hemostable -: cognitively is slowly turning around -: start geodon small dose orally daily -: may tx to med floor if ok with other specialists -: to ambulate as tolerated, MR consult for likely placement in am * . Review of Systems - Medications/Allergies Allergies/Adverse Reactions: Allergies Allergy/AdvReac Type Severity Reaction Status Date / Time No Known Allergies Allergy Verified 11/23/15 23:31 Medications: Current Medications Acetaminophen (Tylenol) 650 mg PO Q4H PRN PRN Reason: Headache/Fever or Pain Albuterol/Ipratropium (Duoneb) 3 ml NEB [id number] [facility] Last Admin: 07/10/17 06:25 Dose: 3 ml Albuterol/Ipratropium (Duoneb) 3 ml NEB Q4H PRN PRN Reason: SOB &/or Wheezing Calcium Carbonate (Tums) 1,000 mg PO Q4H PRN PRN Reason: Heartburn or Indigestion Dextrose/Water (Dextrose 50%) 25 gm SLOW IVP PRN PRN PRN Reason: Hypoglycemia Famotidine (Pepcid) 20 mg SLOW IVP Q12HR MARILYN Last Admin: 07/09/17 21:53 Dose: 20 mg Furosemide (Lasix) 20 mg SLOW IVP Q12H MARILYN Stop: 07/10/17 23:01 Last Admin: 07/10/17 11:50 Dose: 20 mg Glucagon (Glucagon) 1 mg IM PRN PRN PRN Reason: Hypoglycemia Dextrose/Water (D5w) 1,000 mls @ 0 mls/hr IV .Q0M PRN; As Directed PRN Reason: Hypoglycemia Miscellaneous Medication (Pharmacy To Dose) 0 each IVPB PRN PRN PRN Reason: VANC/RENAL Pharmacy to Dose Ondansetron HCl (Zofran Odt) 4 mg PO Q6H PRN PRN Reason: Nausea/Vomiting Ondansetron HCl (Zofran) 4 mg IVP Q6H PRN PRN Reason: Nausea/Vomiting Senna (Senokot) 2 tab PO HSPRN PRN PRN Reason: Constipation Sodium Chloride (Flush - Normal Saline) 10 ml IVF PRN PRN PRN Reason: Saline Flush Last Admin: 07/09/17 08:17 Dose: 10 ml Ziprasidone (Geodon) 20 mg PO QAM-WM MARILYN Ziprasidone (Geodon) 20 mg PO ONE MARILYN
[2017-07-10] MEDS ORDERED: Ziprasidone 20 MG CAP PO SCH (12:45)
[2017-07-10] MEDS: Famotidine 40 MG/4 ML VIAL SLOW IVP SCH ×2 (13:09→21:12)
[2017-07-10] MEDS: Famotidine/PF 20 mg/2ml Vial SLOW IVP SCH (13:13)
--- NOTE | 2017-07-10 15:19 | PQF ---
DATE: 07-10-17 ATTN: DR. JIMBO MORALEZ Please exercise your independent, professional judgment in responding to the clarification form. Clinical indicators are provided on the bottom of this form for your review Please check appropriate box(es): [ ] Sepsis [ ] Severe sepsis with acute organ dysfunction of: (Examples: respiratory failure, encephalopathy, acute kidney failure, other) [ x ] Other diagnosis _initial suspicion but ruled out, was severely dehydrated_ [ ] Unable to determine In addition, please specify: Present on Admission (POA): [ ] Yes [ ] No [ ] Unable to determine For continuity of documentation, please document condition throughout progress notes and discharge summary. Thank You. CLINICAL INDICATORS - SIGNS / SYMPTOMS / LABS H&P: THE PATIENT WAS CONFUSED AND WAS NOT FOLLOWING COMMANDS. TOXIC METABOLIC ENCEPHALOPATHY PROBABLY SECONDARY TO DRUG OVERDOSE. SEPSIS WITH ACUTE ORGAN DYSFUNCTION OF UNCLEAR ETIOLOGY. THE PATIENT HAS WBC OF 23.2 WITH TACHYCARDIA AND METABOLIC ACIDOSIS. TREV ON CKD 2 CONSULT NOTE AMAN PRUETT NP 07-09-17: ASSESSMENT: SEPSIS, SMALL ACUTE L FRONTOTEMPORAL SUBDURAL HEMATOMA WBC: 07-09-17: 23.2 07-10-17: 11.3 BANDS: 07-09-17: 12 PULSE: 114, 133, 102, 105 RR: 07-09-17: 22, 22 HYPERGLYCEMIA IN ABSENCE OF DM: 07-09-17: 141, 118 07-10-17: 161 RISK FACTORS: H&P: POSSIBLE OVERDOSE, CONFUSED, NOT FOLLOWING COMMANDS, BIPOLAR, HX HTN, H/O HYPOTHYROIDISM, H/O COPD, WITH DEHYDRATION, ACUTE ENCEPHALOPATHY TREATMENTS: ( MAR) MEROPENEM IV, IVF, VANCOMYCIN (This form is maintained as a part of the permanent medical record) 2014 [employer] All Rights Reserved [email or web address] Office: [phone] [facility] HOSPITALArpan
--- NOTE | 2017-07-10 15:28 | PQF ---
DATE: 07-10-17 ATTN : DR. JIMBO MORALEZ Please exercise your independent, professional judgment in responding to the clarification form. Clinical indicators are provided on the bottom of this form for your review Please check appropriate box(s): HEART FAILURE: A. TYPE: [ ] Systolic / HFrEF [ ] Diastolic / HFpEF [ ] Combined Systolic / Diastolic B. ACUITY [ ] Acute [ ] Acute on Chronic [ ] Chronic [ x ] Other diagnosis _volume overload due to fluid resuscitation, resolved with one dose of lasix, no heart failure [ ] Unable to determine In addition, please specify: Present on Admission (POA): [ ] Yes [ ] No [ ] Unable to determine For continuity of documentation, please document condition throughout progress notes and discharge summary. Thank You. CLINICAL INDICATORS - SIGNS / SYMPTOMS / LABS CONSULT NOTE LORIE LOPEZ 07-10-17: ACUTE HYPOVOLEMIA WITH EVOLVING ACUTE CONGESTIVE HEART FAILURE BNP 07-10-17: 419.3 CXR: 07-10-17: SLIGHT INTERVAL INCREASE IN PULMONARY VASCULAR CONGESTION. RISKS: H&P: HX OF HTN, HYPERLIPIDEMIA, COPD, DRUG ABUSE, SMOKER, TREV WITH CKD 2 TREATMENTS: (MAR) LASIX IVP (This form is maintained as a part of the permanent medical record) 2014 [employer] All Rights Reserved [email or web address] Office: [phone] DERICK
[2017-07-10] MEDS: Acetaminophen 325 MG TAB PO PRN (18:50)
[2017-07-11] MEDS: Acetaminophen 325 MG TAB PO PRN ×2 (01:26→12:51)
[2017-07-11] MEDS: traMADol HCl 50 MG TAB PO PRN ×2 (01:27→12:51)
[2017-07-11 03:53] VITALS: BMI 27.4
[2017-07-11 04:22] LABS: #Eosinphils 0.2 thou/uL (0.0-0.7); #Monocytes 0.8 thou/uL (0.11-0.59); %Basophils 0.5 % (0.0-1.0); %Eosinophils 2.8 % (0.0-10.0); %Monocytes 11.5 % (0.0-10.0); %Neutrophils 57.2 % (42.0-75.0); Hemoglobin 9.8 g/dL (12.0-16.0); Mean Corpuscular HGB CONC 33.4 g/dL (32.0-36.0); Mean Corpuscular Hemoglobin 28.9 pg (27.0-31.0); Mean Corpuscular Volume 86.7 fl (81.0-99.0); Mean Platelet Volume 5.6 fL (7.4-10.4); Platelet Count 222 thou/uL (130-400); RBC Distribution Width 13.2 % (11.5-14.5)
[2017-07-11 04:39] LABS: ALT (SGPT) 114 U/L (8-55); AST (SGOT) 149 U/L (5-34); Albumin 3.5 g/dL (3.5-5.0); Alkaline Phosphatase 99 U/L (40-150); Anion Gap 12 mmol/L (10-20); BUN (Urea Nitrogen) 13 mg/dL (9.8-20.1); Bilirubin, Total 0.9 mg/dL (0.2-1.2); Calc. Creatinine Clearance 119 mL/min (70-130); Calcium 8.6 mg/dL (7.8-10.44); Carbon Dioxide 29 mmol/L (22-29); Chloride 102 mmol/L (98-107); Estimated GFR-MDRD Greater than 90; Globulin 2.4 g/dL (2.4-3.5); Glucose 90 mg/dL (70-105); Magnesium 1.6 mg/dL (1.6-2.6); Phosphorus 2.4 mg/dL (2.3-4.7); Protein, Total 5.9 g/dL (6.0-8.3); Sodium 140 mmol/L (136-145)
[2017-07-11 04:44] LABS: Potassium 2.8 mmol/L (3.5-5.1)
[2017-07-11] MEDS ORDERED: Potassium Chloride 20 MEQ TAB PO SCH ×2 (05:30→14:00)
[2017-07-11] MEDS ORDERED: Potassium Chloride 40 MEQ in Sodium Chloride 0.9% 250 ML 250 ML IVPB SCH (06:00)
[2017-07-11] MEDS ORDERED: Ziprasidone 20 MG CAP PO SCH (08:00)
[2017-07-11] MEDS: Famotidine 40 MG/4 ML VIAL SLOW IVP SCH (08:10)
[2017-07-11] MEDS ORDERED: Magnesium Sulfate 4 GM, Admixture Fee 1 EACH in Sodium Chloride 0.9% 250 ML 250 ML IVPB SCH (08:15)
--- NOTE | 2017-07-11 10:29 | PRG ---
DATE OF SERVICE: 07/11/2017 SUBJECTIVE: Ms. Dang is awake and alert today. She denies any problems. She is tolerating genera l diet, having normal bowel and urinary function. She is less impulsive today. PHYSICAL EXAMINATION: VITAL SIGNS: Includes blood pressure 140/76, pulse 82, respiratory rate 16, maximum temperature in th e last 24 hours is 98.7 degrees Fahrenheit, oxygen saturation is 100% on room air. HEENT: Examination reveals normocephalic and atraumatic. She has resolved bilateral scleral edema p resent. NECK: She has no jugular venous distention noted. HEART: Reveals regular rate and rhythm, no murmurs or gallops auscultated. LUNGS: Clear to auscultation bilaterally. Her breathing is regular and unlabored. ABDOMEN: Soft, nontender, nondistended. EXTREMITIES: Reveals 2+ radial and pedal pulses bilaterally. She has no ankle edema present. NEUROLOGIC: Examination today reveals no focal deficits present. LABORATORY DATA: Includes CBC with 7,000 white blood cells, hemoglobin and hematocrit stable at 9.8 and 29.5 respectively. Platelet count is 222,000. Metabolic profile: Sodium 140, potassium is 2.8, chloride is 102, bicarbonate is 29, BUN 13, creatinine 0.56, glucose is 90, AST and ALT are slightly elevated at 149 and 114 respectively. Magnesium is 1.6, phosphorus is 2.4. IMPRESSION: 1. Acute traumatic brain injury with cerebral concussion, resolving. 2. Acute hypokalemia. 3. Acute hypomagnesemia. 4. Acute hypophosphatemia. 5. Resolving acute metabolic encephalopathy secondary to polysubstance intoxication. PLAN: 1. Correct abnormal electrolytes. 2. Continue with physical and occupational therapy. 3. The patient has been evaluated by PM&R for possible transfer to inpatient rehabilitation for cogn itive function. Both findings and plan discussed with the patient who indicates understanding of inf ormation given. I have answered all questions.
--- NOTE | 2017-07-11 16:15 | PDOC.PN ---
- Subjective Encounter Start Date: 07/11/17 Encounter Start Time: 15:00 Subjective: Just had [facility] eval -: wants to go home, is oriented well -: ambulating in hallway per staff - Objective Resuscitation Status: Resuscitation Status FULL:Full Resuscitation MAR Reviewed: Yes Vital Signs & Weight: Vital Signs (12 hours) Temp Pulse Resp BP Pulse Ox 07/11/17 12:08 98.3 F 80 16 160/97 H 99 07/11/17 08:24 98.3 F 82 16 140/76 100 07/11/17 08:19 98.3 F 82 16 100 Weight Weight 150 lb Most Recent Monitor Data Heart Rate from ECG 95 NIBP 146/57 NIBP BP-Mean 101 Respiration from ECG 22 SpO2 100 I&O: 07/10/17 07/11/17 07/12/17 06:59 06:59 06:59 Intake Total 3896 1420 Output Total 2 200 Balance 3894 1220 Result Diagrams: 07/11/17 03:57 07/11/17 03:57 Additional Labs: Accuchecks 07/11/17 07/11/17 07/10/17 10:05 05:28 20:41 POC Glucose 130 H 93 94 07/10/17 16:51 POC Glucose 101 Phys Exam - Physical Examination HEENT: PERRLA, moist MMs Neck: no JVD, supple Respiratory: no wheezing, no rales Cardiovascular: RRR, no significant murmur Gastrointestinal: soft, non-tender, positive bowel sounds Musculoskeletal: no edema, pulses present Neurological: non-focal, moves all 4 limbs Psychiatric: A&O x 3 Dx/Plan (1) Acute encephalopathy Code(s): G93.40 - ENCEPHALOPATHY, UNSPECIFIED Status: Resolved Comment: sec to polysubstance abuse and drug overdose (2) Polysubstance abuse Code(s): F19.10 - OTHER PSYCHOACTIVE SUBSTANCE ABUSE, UNCOMPLICATED Status: Acute (3) Drug overdose Code(s): T50.901A - POISONING BY UNSP DRUG/MEDS/BIOL SUBST, ACCIDENTAL, INIT Status: Resolved Qualifiers: Encounter type: subsequent encounter (4) TREV (acute kidney injury) Code(s): N17.9 - ACUTE KIDNEY FAILURE, UNSPECIFIED Status: Resolved (5) SDH (subdural hematoma) Code(s): I62.00 - NONTRAUMATIC SUBDURAL HEMORRHAGE, UNSPECIFIED Status: Acute Comment: on left side (6) Metabolic acidosis Code(s): E87.2 - ACIDOSIS Status: Resolved (7) Mood disorder Code(s): F39 - UNSPECIFIED MOOD [AFFECTIVE] DISORDER Status: Chronic (8) COPD (chronic obstructive pulmonary disease) Status: Chronic Qualifiers: COPD type: chronic bronchitis Chronic bronchitis type: unspecified Qualified Code(s): J42 - Unspecified chronic bronchitis (9) Hypothyroidism Code(s): E03.9 - HYPOTHYROIDISM, UNSPECIFIED Status: Chronic Qualifiers: Hypothyroidism type: unspecified Qualified Code(s): E03.9 - Hypothyroidism , unspecified (10) Chronic pain syndrome Code(s): G89.4 - CHRONIC PAIN SYNDROME Status: Chronic - Plan [facility] has no criteria for inpt psych placement -: will help her for drug rehab if she is willing voluntarily to commit -: safe dc plan has been arranged by [facility] -: may dc home -: kdur total of 4 doses q6h and stop * .
[2017-07-11 16:23] VITALS: BP 143/87; TEMP 97.5
[2017-07-11] MEDS ORDERED: Famotidine 20 MG TAB PO SCH (21:00)
--- NOTE | 2017-07-12 10:12 | DIS ---
DATE OF ADMISSION: 07/09/2017 DATE OF DISCHARGE: 07/11/2017 DISCHARGE DISPOSITION: To home. PRIMARY DISCHARGE DIAGNOSES: Polysubstance abuse with acute encephalopathy, possible drug overdose, acute kidney injury, subdural hematoma on the left side with metabolic acidosis. SECONDARY DISCHARGE DIAGNOSES: Mood disorder likely bipolar disorder, chronic obstructive pulmonary disease, hypothyroidism, chronic pain syndrome. PROCEDURES DONE DURING HOSPITALIZATION: CT brain done on the day of admission showed there is small left frontotemporal subdural hematoma measuring 5 mm in maximum thickness and spanning 6 cm in long axis. Repeat CT brain showed the size to be same with no increase or other abnormalities seen. CT cervical spine showed no acute fracture or subluxation. Chest x-ray done showed no focal consolidation. Right upper quadrant ultrasound done showed fatty infiltration of liver. Blood cultures x2 no growth. Had white count of 23 on the day of admission with hemoglobin and hematocrit of 11 and 36. Discharge white count of 7 with hemoglobin and hematocrit of 10 and 29, discharge BUN and creatinine is 13 and 0.5. Discharge serum bicarbonate is 29, AST 149, ALT 114, alkaline phosphatase 99, total bilirubin 0.9, albumin is 3.5. Urine test was negative. Urine drug screen was positive for opiates, tricyclics, amphetamine, methamphetamine, benzodiazepines, and cocaine. INPATIENT CONSULTS: Dr. Stern for Neurosurgery, Dr. Salazar for Pulmonary and Critical Care, Dr. Solis for trauma. BRIEF COURSE DURING HOSPITALIZATION: Patient initially got admitted on after she was brought by police Department for possible overdose. The patient was found with multiple medication bottles scattered around with altered mentation in the house. She was initially admitted to ICU with polysubstance abuse and possible drug overdose and history of chronic pain syndrome. She was also found to have had small subdural hematoma for which Neurosurgery was consulted. She has had back to back CAT scans of the brain done which showed stable subdural hematoma with no intervention needing. She was aggressively hydrated. Initially, there was suspicion for sepsis, but this has been ruled out. The patient was severely dehydrated with polysubstance abuse and acute encephalopathy. Thirty six hours into hospitalization, patient's cognitive function slowly returned back to her baseline. [facility] consultation was requested on for possible inpatient psychiatric placement if she qualifies. The patient did not meet criteria. If patient is willing for voluntary drug rehabilitation, this will be arranged via [facility], case management and primary care physician in the outpatient setting. Currently, she is not willing for the same. Discharge plan was devised with family members by [facility] and she has been cleared for discharge by [facility]. Now she is ambulating and eating well prior to discharge. The patient was counselled with regarding multiple substance abuse and overmedicating herself. Her son and daughter will be closely involved with post-discharge plan per [facility]. Please see a face to face documentation on [facility] for the day of discharge. DERICK
== END 2017-07-11 18:13 | disposition home or self-care (01) | DRG 917 ==
LOC: ERS 00:20 → CCU 05:10 → SURG A 07-10 12:01
PROVIDERS: ADMIT Internal Medicine; ATTEND Internal Medicine
DX: T43.622A Poisoning by amphetamines, intentional self-harm, initial encounter (principal); G92 Toxic encephalopathy; I62.00 Nontraumatic subdural hemorrhage, unspecified; N17.9 Acute kidney failure, unspecified; E87.2 Acidosis; T42.4X2A Poisoning by benzodiazepines, intentional self-harm, initial encounter; T40.602A Poisoning by unspecified narcotics, intentional self-harm, initial encounter; T40.5X2A Poisoning by cocaine, intentional self-harm, initial encounter; E83.39 Other disorders of phosphorus metabolism; E83.42 Hypomagnesemia; F31.9 Bipolar disorder, unspecified; E78.5 Hyperlipidemia, unspecified; E03.9 Hypothyroidism, unspecified; J44.9 Chronic obstructive pulmonary disease, unspecified; G89.4 Chronic pain syndrome; H40.9 Unspecified glaucoma; B18.2 Chronic viral hepatitis C; E86.0 Dehydration; I12.9 Hypertensive chronic kidney disease with stage 1 through stage 4 chronic kidney disease, or unspecified chronic kidney disease; N18.2 Chronic kidney disease, stage 2 (mild); E87.6 Hypokalemia; F19.10 Other psychoactive substance abuse, uncomplicated; E87.70 Fluid overload, unspecified
CPT/HCPCS: 36415; 36416; 51701; 70450; 71045; 72125; 76705; 80053; 80306; 80307; 81003; 81015; 81025; 82010; 83605; 83690; 83735; 83880; 84100; 84443; 85025; 87040; 93005; 94640; 94760; 96361; 96365; 96372; A4216; A4353; G0390; G8978-GP-CJ; G8979-GP-CJ; G8980-GP-CJ; G8987-GO-CI; G8988-GO-CI; G8989-GO-CI; J1630; J1940; J2060; J2185; J2543; J3370; J3475; J3480; J3486; J7050; J7620

== ENCOUNTER 2017-09-04 09:48 | Outpatient (CLI) | payer OTHER ==
--- NOTE | 2017-09-04 11:37 | CT ---
NONCONTRAST CT HEAD: DATE: 09/04/17. HISTORY: Traumatic subdural hemorrhage without loss of consciousness. Followup evaluation. COMPARISON: 07/09/17. FINDINGS: The previously seen small left frontotemporal subdural hemorrhage is no longer visualized and has res olved when compared to the prior exam. No intraparenchymal or extraaxial hemorrhage is seen on today 's exam. Again noted are mild chronic small-vessel ischemic changes and cerebral volume loss. There is no stan dence of an acute infarction, mass effect, or midline shift. The ventricular system is normal in siz e, shape, and position for the degree of sulcal atrophy. There has been no other interval change fro m the prior exam. IMPRESSION: 1. No acute intracranial abnormality is demonstrated. 2. Resolution of the left frontotemporal subdural hemorrhage. 3. Mild chronic small-vessel ischemic changes and cerebral volume loss. POS: JOSE
== END 2017-09-04 09:49 | disposition home or self-care (01) ==
LOC: TBSIIMAG 09:48
PROVIDERS: ATTEND Neurological Surgery
DX: S06.9X9A Unspecified intracranial injury with loss of consciousness of unspecified duration, initial encounter (principal)
CPT/HCPCS: 70450

== ENCOUNTER 2017-11-09 14:07 | Outpatient (CLI) | payer OTHER ==
--- NOTE | 2017-11-14 13:28 | MMO ---
BILATERAL SCREENING MAMMOGRAMS: History: 57-year-old female for screening mammography. Comparison: 01-23-13 FINDINGS: Bilateral MLO and CC views of the breasts shows scattered fibroglandular breast tissue. There is no e vidence of suspicious mass, suspicious cluster of microcalcifications, or area of architectural disto rtion. This study is interpreted with the assistance of computer aided detection. IMPRESSION: BIRADS category 1 - negative. Annual screening mammography is recommended. POS: JOSE
== END 2017-11-09 14:08 | disposition home or self-care (01) ==
LOC: SCSMAMMO 14:07
PROVIDERS: ATTEND Physician Assistant
DX: Z12.31 Encounter for screening mammogram for malignant neoplasm of breast (principal)
CPT/HCPCS: 77067